=== PATIENT | female | born 1955 | race Caucasian/White ===

== ENCOUNTER → 2016-07-04 | Outpatient (CLI) | payer BC ==
--- NOTE | 2016-07-04 16:42 | MR ---
EXAMINATION TYPE: MR knee LT wo con DATE OF EXAM: 07/04/2016 3:39 PM COMPARISON: Outside left knee x-ray June 21, 2016 HISTORY: PAIN IN LT KNEE per order. Outer left knee pain for one year per patient. TECHNIQUE: Multiplanar, multisequence images of the knee is performed without IV contrast. FINDINGS: MEDIAL MENISCUS: Anterior horn is intact without tear. There is triangular shaped increased signal po sterior horn of medial meniscus extending centrally, appears to extend to inferior articular surface on coronal image 21 lateral aspect. There is medial extrusion of medial meniscus seen on coronal imag e 18 with increased signal involving central body. LATERAL MENISCUS: Anterior and posterior horns are intact without tear. CRUCIATE LIGAMENTS: The anterior and posterior cruciate ligaments are intact and unremarkable. COLLATERAL LIGAMENTS: The medial collateral ligament and lateral collateral ligament complex are inta ct and unremarkable. EXTENSOR MECHANISM: Visualized quadriceps and patellar tendons are intact. EFFUSION: No significant suprapatellar joint effusion. POPLITEAL CYST: No popliteal/razo cyst. TRICOMPARTMENT SPACES: Tricompartment joint spaces are mildly narrowed. No significant spurring is se en. CARTILAGE: Some thinning of articular cartilage medial tibiofemoral compartment is identified. No ful l-thickness cartilaginous loss is seen. There is focal full-thickness 4 mm cartilaginous defect superior posterior patellar pole with reactiv e T2 heterogeneous 1 cm cystic change seen on axial image 15 and sagittal image 16. BONE MARROW SIGNAL: No additional area of focal abnormal marrow signal is appreciated. OTHER: No additional significant abnormality is appreciated. IMPRESSION: 1. Full-thickness tear posterior horn of medial meniscus extending into lateral body. 2. Focal full-thickness chondromalacia patella superior posterior patellar pole. 3. Mild tricompartment degenerative changes as detailed above.
== END | disposition home or self-care (01) ==
LOC: RADMRIMAIN 14:59
PROVIDERS: ATTEND Orthopaedic Surgery
DX: S83.242A Other tear of medial meniscus, current injury, left knee, initial encounter (principal); M22.42 Chondromalacia patellae, left knee; M25.862 Other specified joint disorders, left knee

== ENCOUNTER → 2016-07-21 | Outpatient (CLI) | payer BC ==
[2016-07-21 09:58] LABS: EKG EKG PERFORMED
[2016-07-21 10:20] LABS: Basophils # (A) 0.1 k/uL (0-0.2); Basophils % (A) 1 %; CH 30.8; CHCM 31.2; Eosinophils # (A) 0.1 k/uL (0-0.7); Eosinophils % (A) 2 %; HCT 40.4 % (34.0-46.0); HDW 2.32; HGB 12.5 gm/dL (11.4-16.0); Hypochromasia Slight; Luc # (Auto) 0.14; Luc % (Auto) 3; Lymphocytes # (A) 1.3 k/uL (1.0-4.8); Lymphocytes % (A) 25 %; MCH 30.8 pg (25.0-35.0); MCV 99.3 fL (80.0-100.0); Macrocytosis Slight; Mean Platelet Volume 7.5; Monocytes # (A) 0.2 k/uL (0-1.0); Monocytes % (A) 5 %; Neutrophils # (A) 3.3 k/uL (1.3-7.7); Neutrophils % (A) 65 %; RBC 4.07 m/uL (3.80-5.40); RDW 15.5 % (11.5-15.5); WBC (Perox) 5.43
[2016-07-21 10:38] LABS: Anion Gap 8 mmol/L; Carbon Dioxide 29 mmol/L (22-30); Chloride 105 mmol/L (98-107); Potassium 4.5 mmol/L (3.5-5.1); Sodium 142 mmol/L (137-145)
== END | disposition home or self-care (01) ==
LOC: LABPAT 09:49
PROVIDERS: ATTEND Orthopaedic Surgery
DX: Z01.810 Encounter for preprocedural cardiovascular examination (principal); M23.92 Unspecified internal derangement of left knee; Z01.812 Encounter for preprocedural laboratory examination
CPT/HCPCS: 36415; 80051; 85025; 93005

== ENCOUNTER 2016-08-09 08:15 | Day surgery (SDC) | payer BC ==
[2016-08-08 08:20] VITALS: BMI 23.5
--- NOTE | 2016-08-08 16:16 | HP ---
DATE OF ADMISSION: 08/09/2016 Martha Woodson is a 61-year-old patient seen with progressive left knee pain. We discussed options. She elected to proceed with left knee arthroscopy. Consent was obtained. Past medical history is osteoarthritis. Past surgical history is noncontributory. DAILY MEDICATIONS: Aleve. ALLERGIES: CODEINE, VICODIN AND COMPAZINE. SOCIAL HISTORY: Patient denies current tobacco use. PHYSICAL EVALUATION OF THE LEFT KNEE: Her range of motion is 0 to 125 degrees, tenderness along the medial joint line. Positive medial Bairon's. Ligaments stable. Hip rotation without pain. Distal neurovascular exam intact. Left knee radiographs revealed moderate tricompartmental osteoarthritis. MRI of the left knee revealed medial meniscal tear and osteoarthritis. IMPRESSION: Internal derangement of the left knee with medial meniscal tear. PLAN: Left knee arthroscopy with partial meniscectomy and debridement.
[~2016-08-09 08:15] MED LIST: DEXAMETHASONE SOD PHOSPHATE 10 MG/ML 1 ML VIAL IV ONE; HYDROmorphone 1 MG/ML 1 ML SYRINGE IVP PRN; LACTATED RINGERS 1,000 ML IV SCH; MIDAZOLAM 2 MG/2 ML VIAL IV PRN; ONDANSETRON 4 MG/2 ML VIAL IVP ONE; SCOPOLAMINE 1.5MG/72HR PATCH TRANSDERM ONE; ceFAZolin 1,000 MG in DEXTROSE/WATER 1 50ML.BAG IV ONE
[2016-08-09] MEDS ORDERED: LIDOCAINE 1% 20 ML VIAL (10MG/ML) FOR IV START INTRADERMA ONE (09:16)
[2016-08-09] MEDS ORDERED: MIDAZOLAM 2 MG/2 ML VIAL ONE (10:34)
[2016-08-09] MEDS ORDERED: fentaNYL (PF) 50 MCG/ML 2 ML AMP ONE (10:34)
[2016-08-09] MEDS ORDERED: LIDOCAINE 1% INJ 10MG/ML (20 ML MDV) ONE (10:34)
[2016-08-09] MEDS ORDERED: ACETAMINOPHEN IV (For NPO) 1,000 MG/100 ML VIAL ONE (10:34)
[2016-08-09] MEDS ORDERED: KETOROLAC 30 MG/ML 1 ML VIAL ONE (10:34)
[2016-08-09] MEDS ORDERED: PROPOFOL 10 MG/ML 20 ML VIAL IV ONE (10:34)
[2016-08-09] MEDS ORDERED: SUCCINYLCHOLINE CHLORIDE 100 MG/5 ML SYR IV ONE (10:34)
[2016-08-09] MEDS ORDERED: BUPIVACAIN-EPI 0.25%-1:200,000 30 ML VIAL INTRAARTIC ONE (11:03)
--- NOTE | 2016-08-09 11:33 | P.OP ---
Date of Procedure: 08/09/16 Preoperative Diagnosis: Internal derangement left knee Postoperative Diagnosis: 1. Tear medial and lateral meniscus left knee 2. Grade 2/3 chondromalacia medial femoral condyle left knee 3. Grade 2 chondromalacia lateral femoral condyle left knee 4. Grade 1/2 chondromalacia patella left knee 5. Reactive synovitis medial and suprapatellar compartments left knee Procedure(s) Performed: 1. Arthroscopic partial medial and lateral meniscectomy left knee 2. Arthroscopic chondroplasty medial femoral condyle left knee 3. Arthroscopic chondroplasty lateral femoral condyle left knee 4. Arthroscopic chondroplasty patella left knee 5. Arthroscopic partial synovectomy medial and suprapatellar compartments left knee Implants: None Anesthesia: SPENCER, local Surgeon: Jamie Finch Estimated Blood Loss (ml): 10 Pathology: none sent Condition: stable Disposition: PACU Indications for Procedure: 61-year-old patient seen with progressive left knee pain. After having treatment options discussed, she elected to proceed with arthroscopy. Operative Findings: See description of procedure Description of Procedure: Patient was taken to the operative suite. Patient underwent a general anesthetic by the department of anesthesia. Patient was given preoperative antibiotics. The left lower extremity was placed in a well-padded arthroscopic leg caballero. The left leg was prepped and draped in the normal sterile orthopedic fashion. A lateral parapatellar and suprapatellar incision was made. Trochars were inserted. Arthroscopy was initiated. Suprapatellar pouch revealed diffuse thick reactive synovitis. The patellofemoral joint appeared to articulate congruently. There was grade 1/2 chondromalacia of the patella with a small central osteochondral tear present. The scope was guided into the medial gutter. No loose bodies or plica were identified. The scope was then guided into the medial compartment. A medial parapatellar incision was made. Trocar inserted followed by probe. The complex tear posterior horn medial meniscus which did extend into the midbody. There was an area of grade 2/3 chondromalacia medial femoral condyle with some osteochondral tears present. Some reactive synovitis is noted anteriorly. No loose bodies. A partial medial meniscectomy was performed on a stable tissue. I performed a chondroplasty of the medial femoral condyle and partial synovectomy. The residual osteochondral surface was stable with grade 3 chondromalacia noted. The residual meniscus was stable. Scope and probe were then guided into the intercondylar notch. Cruciates were identified, probed and found to be stable. The scope and probe were then guided into lateral compartment. There was a radial tear at the posterior horn and midbody junction lateral meniscus. Grade 2 chondral malacia changes weightbearing surface lateral femoral condyle small osteochondral tears. No loose bodies, no reactive synovitis was present. A partial lateral meniscectomy was performed on a stable tissue. I performed a chondroplasty lateral femoral condyle. The residual meniscus was stable. The residual osteochondral surface was stable. The scope was in guided back into the suprapatellar compartment. I introduced a motorized shaver into the super compartment. I debrided out some piecemeal fragments of meniscus. I performed a chondroplasty of the patella down to stable tissue. I performed a partial synovectomy down to stable tissue. The residual osteochondral surface of the patella was stable. We took one more look on the entire knee, no residual debris. Instruments were now removed from the joint. The joint was infiltrated with .25% Marcaine. Steri-Strips were applied to the portal sites. Sterile dressings were applied. The patient was placed into a ERIC hose. No tourniquet was utilized. The patient was awakened, transferred to a bed and taken to recovery stable satisfactory condition.
[2016-08-09 11:43] VITALS: RESP 16; TEMP 96.8
[2016-08-09] MEDS ORDERED: HYDROmorphone 1 MG/ML 1 ML SYRINGE IVP ONE ×2 (11:56→12:14)
[2016-08-09] MEDS ORDERED: LACTATED RINGERS 1,000 ML IV ONE (12:19)
[2016-08-09] MEDS ORDERED: traMADol 50 MG TAB PO ONE (12:35)
[2016-08-09 13:04] VITALS: BP 108/68; PULSE 63
== END 2016-08-09 13:29 | disposition home or self-care (01) ==
LOC: OR 08:15
PROVIDERS: ATTEND Orthopaedic Surgery
DX: S83.242A Other tear of medial meniscus, current injury, left knee, initial encounter (principal); S83.282A Other tear of lateral meniscus, current injury, left knee, initial encounter; X58.XXXA Exposure to other specified factors, initial encounter; M22.42 Chondromalacia patellae, left knee; M65.862 Other synovitis and tenosynovitis, left lower leg; M19.90 Unspecified osteoarthritis, unspecified site; Z79.1 Long term (current) use of non-steroidal anti-inflammatories (NSAID); Z88.5 Allergy status to narcotic agent; Z88.8 Allergy status to other drugs, medicaments and biological substances
CPT/HCPCS: 29880; J2250; J1100; J2001; J3010; J1885; J1170; J0690; J0131; J0330; J2704

== ENCOUNTER → 2017-05-25 | Outpatient (CLI) | payer BC ==
[2017-05-25 11:55] LABS: Anisocytosis Slight; HCT 28.3 % (34.0-46.0); HGB 8.1 gm/dL (11.4-16.0); Hypochromasia Marked; MCH 25.9 pg (25.0-35.0); MCHC 28.5 g/dL (31.0-37.0); MCV 90.7 fL (80.0-100.0); Mean Platelet Volume 21.8; Platelet Count 104 k/uL (150-450); Poikilocytosis Marked; RBC 3.12 m/uL (3.80-5.40); RDW 19.9 % (11.5-15.5); WBC 5.1 k/uL (3.8-10.6)
== END | disposition home or self-care (01) ==
LOC: LABWHC1 11:05
PROVIDERS: ATTEND Internal Medicine Hematology & Oncology
DX: C50.919 Malignant neoplasm of unspecified site of unspecified female breast (principal)
CPT/HCPCS: 36415; 85027

== ENCOUNTER 2017-06-18 19:21 | Emergency (ER) | payer BC ==
[2017-06-18 19:46] LABS: Appearance,Urine Clear (Clear); Bilirubin,Urine Negative (Negative); Blood,Urine Negative (Negative); Color,Urine Yellow; Glucose,Urine (UA) Negative (Negative); Ketones,Urine Negative (Negative); Leukocyte Esterase,Urine Negative (Negative); Nitrite,Urine Negative (Negative); Protein,Urine Negative (Negative); Specific Gravity,Urine 1.017 (1.001-1.035)
[2017-06-18] MEDS ORDERED: PIPERACILLIN-TAZOBACTAM 3.375 GM in DEXTROSE/WATER 1 50ML.BAG IVPB STA (19:46)
[2017-06-18] MEDS ORDERED: VANCOMYCIN IV PER PHARMACY 1 EACH MISC MISCELLANE PRN (19:46)
--- NOTE | 2017-06-18 20:01 | ED ---
General Adult HPI - General Chief complaint: Urogenital Stated complaint: Leukemia/Fever Time Seen by Provider: 06/18/17 19:43 Source: patient, RN notes reviewed, old records reviewed Mode of arrival: ambulatory Limitations: no limitations - History of Present Illness Initial comments: This is a 62-year-old female the ER for evaluation. Patient herself presented for evaluation regarding fever today. With burning with urination. Patient is on chemotherapy currently for MDS, leukemia. Patient states that she feels weak fatigue but denies bowel pain or shortness of breath or cough or congestion no recent fevers no rashes. Patient does admit to fever today 101 - Related Data Home Medications Medication Instructions Recorded Confirmed Multivitamins, Thera [Multivitamin 1 tab PO DAILY 06/18/17 06/18/17 (formulary)] Allergies Allergy/AdvReac Type Severity Reaction Status Date / Time acetaminophen [From Vicodin] AdvReac Nausea & Verified 06/18/17 20:17 Vomiting codeine AdvReac Hallucinati Verified 06/18/17 20:17 ons hydrocodone bitartrate AdvReac Nausea & Verified 06/18/17 20:17 [From Vicodin] Vomiting ondansetron AdvReac Nausea & Verified 06/18/17 20:17 [From Zofran (as Vomiting hydrochloride)] prochlorperazine edisylate AdvReac Nausea & Verified 06/18/17 20:17 [From Compazine] Vomiting prochlorperazine maleate AdvReac Nausea & Verified 06/18/17 20:17 [From Compazine] Vomiting Review of Systems ROS Statement: Those systems with pertinent positive or pertinent negative responses have been documented in the HPI. ROS Other: All systems not noted in ROS Statement are negative. Past Medical History Past Medical History: Cancer Additional Past Medical History / Comment(s): past hx. colon polyps, recent rectal bldg., hx. breast cancer 1997 & 2008, leukemia History of Any Multi-Drug Resistant Organisms: None Reported Past Surgical History: Breast Surgery, Hysterectomy, Orthopedic Surgery Additional Past Surgical History / Comment(s): bilateral mastectomy, left knee surgery Past Anesthesia/Blood Transfusion Reactions: Motion Sickness, Postoperative Nausea & Vomiting (PONV) Past Psychological History: No Psychological Hx Reported Smoking Status: Former smoker Past Alcohol Use History: None Reported Past Drug Use History: None Reported General Exam Limitations: no limitations General appearance: alert, in no apparent distress Head exam: Present: atraumatic, normocephalic, normal inspection Eye exam: Present: normal appearance, PERRL, EOMI. Absent: scleral icterus, conjunctival injection, periorbital swelling ENT exam: Present: normal exam, mucous membranes moist Neck exam: Present: normal inspection. Absent: tenderness, meningismus, lymphadenopathy Respiratory exam: Present: normal lung sounds bilaterally. Absent: respiratory distress, wheezes, rales, rhonchi, stridor Cardiovascular Exam: Present: regular rate, normal rhythm, normal heart sounds. Absent: systolic murmur, diastolic murmur, rubs, gallop, clicks GI/Abdominal exam: Present: soft, normal bowel sounds. Absent: distended, tenderness, guarding, rebound, rigid Extremities exam: Present: normal inspection, full ROM, normal capillary refill. Absent: tenderness, pedal edema, joint swelling, calf tenderness Back exam: Present: normal inspection Neurological exam: Present: alert, oriented X3, CN II-XII intact Psychiatric exam: Present: normal affect, normal mood Skin exam: Present: warm, dry, intact, normal color. Absent: rash Course Vital Signs 06/18/17 19:23 Temperature 101.5 F H Pulse Rate 112 H Respiratory 18 Rate Blood Pressure 135/77 O2 Sat by Pulse 98 Oximetry - Reevaluation(s) Reevaluation #1: 06/18/17 20:[address] Nunes regarding patient, EKG Findings - EKG Comments: EKG Findings:: EKG shows sinus tachycardia rate 102, MO 146, QRS 82, QTc 471 Medical Decision Making - Lab Data Result diagrams: 06/18/17 19:51 06/18/17 19:51 Lab Results 06/18/17 06/18/17 06/18/17 Range/Units 19:44 19:51 19:51 WBC 2.5 L (3.8-10.6) k/uL RBC 3.36 L (3.80-5.40) m/uL Hgb 8.5 L (11.4-16.0) gm/dL Hct 29.2 L (34.0-46.0) % MCV 86.7 (80.0-100.0) fL MCH 25.2 (25.0-35.0) pg MCHC 29.0 L (31.0-37.0) g/dL RDW 19.9 H (11.5-15.5) % Plt Count 17 L* D (150-450) k/uL Neutrophils % (Manual) 26 % Band Neutrophils % 1 % Lymphocytes % (Manual) 65 % Eosinophils % (Manual) 2 % Basophils % (Manual) 7 % Myelocytes % 1 % Neutrophils # (Manual) 0.60 L (1.3-7.7) k/uL Lymphocytes # (Manual) 1.63 (1.0-4.8) k/uL Eosinophils # (Manual) 0.05 (0-0.7) k/uL Basophils # (Manual) 0.18 (0-0.2) k/uL Myelocytes # (Manual) 0.03 H (0) k/uL Nucleated RBCs 6 H (0-0) /100 WBC Manual Slide Review Performed Hypochromasia Marked Poikilocytosis Marked Poikilocytosis (manual Present Anisocytosis Slight Microcytosis Slight Target Cells Present PT (9.0-12.0) sec INR (<1.2) APTT (22.0-30.0) sec Sodium 141 (137-145) mmol/L Potassium 4.0 (3.5-5.1) mmol/L Chloride 98 (98-107) mmol/L Carbon Dioxide 25 (22-30) mmol/L Anion Gap 18 mmol/L BUN 15 (7-17) mg/dL Creatinine 0.70 (0.52-1.04) mg/dL Est GFR (CKD-EPI)AfAm >90 (>60 ml/min/1.73 sqM) Est GFR (CKD-EPI)NonAf >90 (>60 ml/min/1.73 sqM) Glucose 124 H (74-99) mg/dL Plasma Lactic Acid Enmanuel (0.7-2.0) mmol/L Calcium 9.2 (8.4-10.2) mg/dL Total Bilirubin 0.9 (0.2-1.3) mg/dL AST 46 H (14-36) U/L ALT 58 H (9-52) U/L Alkaline Phosphatase 109 (38-126) U/L Total Creatine Kinase (30-135) U/L CK-MB (CK-2) (0.0-2.4) ng/mL CK-MB (CK-2) Rel Index Troponin I (0.000-0.034) ng/mL Total Protein 7.0 (6.3-8.2) g/dL Albumin 4.1 (3.5-5.0) g/dL Urine Color Yellow Urine Appearance Clear (Clear) Urine pH 6.0 (5.0-8.0) Ur Specific [place] 1.017 (1.001-1.035) Urine Protein Negative (Negative) Urine Glucose (UA) Negative (Negative) Urine Ketones Negative (Negative) Urine Blood Negative (Negative) Urine Nitrite Negative (Negative) Urine Bilirubin Negative (Negative) Urine Urobilinogen 2.0 (<2.0) mg/dL Ur Leukocyte Esterase Negative (Negative) 06/18/17 06/18/17 06/18/17 Range/Units 19:51 19:51 19:51 WBC (3.8-10.6) k/uL RBC (3.80-5.40) m/uL Hgb (11.4-16.0) gm/dL Hct (34.0-46.0) % MCV (80.0-100.0) fL MCH (25.0-35.0) pg MCHC (31.0-37.0) g/dL RDW (11.5-15.5) % Plt Count (150-450) k/uL Neutrophils % (Manual) % Band Neutrophils % % Lymphocytes % (Manual) % Eosinophils % (Manual) % Basophils % (Manual) % Myelocytes % % Neutrophils # (Manual) (1.3-7.7) k/uL Lymphocytes # (Manual) (1.0-4.8) k/uL Eosinophils # (Manual) (0-0.7) k/uL Basophils # (Manual) (0-0.2) k/uL Myelocytes # (Manual) (0) k/uL Nucleated RBCs (0-0) /100 WBC Manual Slide Review Hypochromasia Poikilocytosis Poikilocytosis (manual Anisocytosis Microcytosis Target Cells PT 10.0 (9.0-12.0) sec INR 1.0 (<1.2) APTT 24.7 (22.0-30.0) sec Sodium (137-145) mmol/L Potassium (3.5-5.1) mmol/L Chloride (98-107) mmol/L Carbon Dioxide (22-30) mmol/L Anion Gap mmol/L BUN (7-17) mg/dL Creatinine (0.52-1.04) mg/dL Est GFR (CKD-EPI)AfAm (>60 ml/min/1.73 sqM) Est GFR (CKD-EPI)NonAf (>60 ml/min/1.73 sqM) Glucose (74-99) mg/dL Plasma Lactic Acid Enmanuel 2.7 H* (0.7-2.0) mmol/L Calcium (8.4-10.2) mg/dL Total Bilirubin (0.2-1.3) mg/dL AST (14-36) U/L ALT (9-52) U/L Alkaline Phosphatase (38-126) U/L Total Creatine Kinase <20 L (30-135) U/L CK-MB (CK-2) <0.2 (0.0-2.4) ng/mL CK-MB (CK-2) Rel Index Troponin I <0.012 (0.000-0.034) ng/mL Total Protein (6.3-8.2) g/dL Albumin (3.5-5.0) g/dL Urine Color Urine Appearance (Clear) Urine pH (5.0-8.0) Ur Specific [place] (1.001-1.035) Urine Protein (Negative) Urine Glucose (UA) (Negative) Urine Ketones (Negative) Urine Blood (Negative) Urine Nitrite (Negative) Urine Bilirubin (Negative) Urine Urobilinogen (<2.0) mg/dL Ur Leukocyte Esterase (Negative) Disposition Clinical Impression: Fever Disposition: HOME SELF-CARE Condition: Fair Instructions: Fever in Adults (ED) Is patient prescribed a controlled substance at d/c from ED?: No Referrals: Dayo Chen MD [STAFF PHYSICIAN] - 1-2 days
[2017-06-18] MEDS ORDERED: IBUPROFEN 600 MG TAB PO STA (20:16)
[2017-06-18 20:18] LABS: Anisocytosis Slight; HCT 29.2 % (34.0-46.0); HGB 8.5 gm/dL (11.4-16.0); Hypochromasia Marked; MCH 25.2 pg (25.0-35.0); MCV 86.7 fL (80.0-100.0); Mean Platelet Volume 7.7; Microcytosis Slight; Poikilocytosis Marked; RBC 3.36 m/uL (3.80-5.40); RDW 19.9 % (11.5-15.5)
[2017-06-18] MEDS: SODIUM CHLORIDE 0.9% 500 ML IV SCH ×2 (20:18→21:36)
[2017-06-18 20:28] LABS: Partial Thromboplastin Time 24.7 sec (22.0-30.0)
[2017-06-18 20:30] LABS: ALT 58 U/L (9-52); AST 46 U/L (14-36); Albumin 4.1 g/dL (3.5-5.0); Alkaline Phosphatase 109 U/L (38-126); Anion Gap 18 mmol/L; Blood Urea Nitrogen 15 mg/dL (7-17); Calcium 9.2 mg/dL (8.4-10.2); Carbon Dioxide 25 mmol/L (22-30); Chloride 98 mmol/L (98-107); Glucose 124 mg/dL (74-99); Sodium 141 mmol/L (137-145); Total Bilirubin 0.9 mg/dL (0.2-1.3)
[2017-06-18 20:31] LABS: Creatine Kinase <20 U/L (30-135)
[2017-06-18 20:43] LABS: Creatine Kinase MB <0.2 ng/mL (0.0-2.4); Troponin I <0.012 ng/mL (0.000-0.034)
[2017-06-18 20:48] LABS: Band Neutrophils % 1 %; Basophils # (M) 0.18 k/uL (0-0.2); Eosinophils # (M) 0.05 k/uL (0-0.7); Lymphocytes # (M) 1.63 k/uL (1.0-4.8); Myelocytes # (M) 0.03 k/uL (0); Myelocytes % 1 %; Neutrophils % (M) 26 %; Nucleated Red Blood Cells 6 /100 WBC (0-0); Poikilocytosis (M) Present; Target Cells Present; Total Cells Counted 200; WBC 2.5 k/uL (3.8-10.6)
[2017-06-18 20:52] LABS: Platelet Count 17 k/uL (150-450)
--- NOTE | 2017-06-18 21:08 | XR ---
EXAMINATION TYPE: XR chest 2V DATE OF EXAM: 06/18/2017 COMPARISON: NONE HISTORY: History of breast cancer presents with fever. TECHNIQUE: Frontal and lateral views of the chest are obtained. FINDINGS: There is chronic parenchymal change without suspicious focal air space opacity, pleural ef fusion, or pneumothorax seen. The cardiac silhouette size is upper limits of normal with atheroscler otic aorta. The osseous structures are intact. Right axillary surgical clips are present. IMPRESSION: Chronic changes without suspicious acute pulmonary process.
[2017-06-18 22:17] VITALS: BP 100/55; PULSE 91; RESP 20; TEMP 99.7
[2017-06-19] MEDS ORDERED: VANCOMYCIN 1,250 MG in SODIUM CHLORIDE 0.9% 250 ML IVPB SCH (01:00)
== END 2017-06-18 22:25 | disposition home or self-care (01) ==
LOC: EC 19:21
DX: R50.9 Fever, unspecified (principal); C95.90 Leukemia, unspecified not having achieved remission; Z87.891 Personal history of nicotine dependence; Z88.5 Allergy status to narcotic agent; Z88.6 Allergy status to analgesic agent; Z88.8 Allergy status to other drugs, medicaments and biological substances
CPT/HCPCS: 99284 ×2; 96365 ×2; 96366 ×2; 36415; 93005; 80053; 82550; 82553; 83605; 84484; 85025; 85610; 85730; 81003; 87040; 87086; 87502; 71046; J2543